=== PATIENT | female | born 1950 | race Hispanic/Latino ===

== ENCOUNTER 2017-03-07 12:13 | Emergency (ER) | payer MEDICARE, OTHER ==
[~2017-03-07 12:13] MED LIST: ACET-66 PO; ASPI-555 PO; ATOR10TA69 PO; B12/1TAB PO; CHOL50004 PO; FERR325T21 PO; LISI10TA7 PO; MIRALAX PO; OMEP40CA37 PO; TRAM50TA4 PO; VERA-7 PO
[2017-03-07 12:45] LABS: BASOPHILS % (AUTO) 0.3 % (0.0-5.0); HEMATOCRIT 37.6 % (36-48); MEAN CORPUSCULAR HEMOGLOBIN 30.3 pg (27.0-33.0); MEAN CORPUSCULAR HGB CONC 33.5 g/dL (32.0-36.0); MEAN CORPUSCULAR VOLUME 90.5 fL (79-99); MONOCYTES % (AUTO) 2.2 % (3.0-13.0); NEUTROPHILS % (AUTO) 89.5 % (40.0-77.0); PLATELET COUNT (AUTO) 258 K/uL (130-400); RED BLOOD CELL COUNT(AUTO) 4.15 MIL/uL (4.00-5.50); WHITE BLOOD COUNT (AUTO) 10.4 K/uL (4.8-10.8)
[2017-03-07 12:58] LABS: POTASSIUM 3.6 mmol/L (3.5-5.1)
[2017-03-07 13:01] LABS: INR 0.94 (0.85-1.15); PARTIAL THROMBOPLASTIN TIME 24.5 SEC (26.3-35.5); PROTHROMBIN TIME 9.9 SEC (9.6-11.6)
[2017-03-07 13:11] LABS: BILIRUBIN,TOTAL 0.9 mg/dL (0.2-1.0); CREATINE KINASE MB 0.6 ng/mL (0.5-3.6); TOTAL PROTEIN, SERUM 7.9 g/dL (6.0-8.3)
[2017-03-07] MEDS ORDERED: ONDANSETRON HCL 4 MG/2 ML VIAL ONE (14:22)
[2017-03-07] MEDS ORDERED: SODIUM CHLORIDE 0.9% 1000ML 1,000 ML IV ONE (14:22)
[2017-03-07] MEDS ORDERED: FAMOTIDINE/PF 20 MG/2 ML VIAL IV ONE (14:22)
[2017-03-07] MEDS ORDERED: LIDOCAINE HCL 2% VISCOUS 15 ML UDCUP ONE (15:10)
[2017-03-07] MEDS ORDERED: MAG HYDROX/AL HYDROX/SIMETH ES 30 ML SUSP UDCUP ONE (15:10)
== END 2017-03-07 19:25 | disposition home or self-care (01) ==
LOC: EDH 12:13
DX: K29.70 Gastritis, unspecified, without bleeding (principal); R11.2 Nausea with vomiting, unspecified; I10 Essential (primary) hypertension; Z88.1 Allergy status to other antibiotic agents; Z88.0 Allergy status to penicillin; Z91.041 Radiographic dye allergy status; Z79.899 Other long term (current) drug therapy
CPT/HCPCS: 36415; 80053; 82550; 82553; 84484; 85025; 85610; 85730; 93005; 96361; 96374; 96375; 99285; J2405; J3490; J7030

== ENCOUNTER 2018-08-19 21:17 | Inpatient (IN) | payer MEDICARE ==
[~2018-08-19] VITALS: Ht 167.6 cm; Wt 93.9 kg
[~2018-08-19 21:17] MED LIST changes: -VERA-7 PO; +VERA240T14 PO
[2018-08-19] MEDS ORDERED: ONDANSETRON HCL 4 MG/2 ML VIAL ONE (21:38)
[2018-08-19 22:03] LABS: BASOPHILS % (AUTO) 0.5 % (0.0-5.0); EOSINOPHILS % (AUTO) 0.5 % (0.0-8.0); HEMATOCRIT 39.7 % (36-48); LYMPHOCYTES % (AUTO) 11.3 % (21.0-51.0); MEAN CORPUSCULAR HGB CONC 33.8 g/dL (32.0-36.0); MEAN CORPUSCULAR VOLUME 91.8 fL (79-99); MONOCYTES % (AUTO) 2.7 % (3.0-13.0); PLATELET COUNT (AUTO) 248 K/uL (130-400); RED BLOOD CELL COUNT(AUTO) 4.33 MIL/uL (4.00-5.50); RED CELL DISTRIBUTION WIDTH 12.9 % (11.0-15.5); WHITE BLOOD COUNT (AUTO) 10.3 K/uL (4.8-10.8)
[2018-08-19 22:14] LABS: POTASSIUM 3.7 mmol/L (3.5-5.1)
[2018-08-19 22:16] LABS: PARTIAL THROMBOPLASTIN TIME 28.4 SEC (26.3-35.5); PROTHROMBIN TIME 10.5 SEC (9.6-11.6)
[2018-08-19 22:18] LABS: ALBUMIN 4.4 g/dL (3.5-5.0); BILIRUBIN,TOTAL 0.8 mg/dL (0.2-1.0); TOTAL PROTEIN, SERUM 8.3 g/dL (6.0-8.3)
[2018-08-19] MEDS ORDERED: KETOROLAC TROMETHAMINE 15MG/ML ONE (22:36)
[2018-08-19] MEDS ORDERED: NITROGLYCERIN 0.4 MG SL TAB SL PRN (23:30)
[2018-08-19] MEDS ORDERED: ONDANSETRON HCL 4 MG/2 ML VIAL IV PRN (23:30)
[2018-08-19] MEDS ORDERED: ACETAMINOPHEN 650 MG SUPPOSITORY RC PRN ×2 (23:30)
[2018-08-19] MEDS ORDERED: SODIUM CHLORIDE 0.9% 1000ML 1,000 ML IV ONE (23:50)
--- NOTE | 2018-08-20 01:55 | NUR ---
ADMISSION. PT ADMITTED INTO ROOM 406, TRANSFERRED VIA STRETCHER. AWAKE, ALERT AND RESPONSIVE, NGT TO RT NAVIDE, CONNECTED TO LIS. NO C/O PAIN OR DISTRESS AT THIS TIME. PT ORIENTED TO ROOM, CALL NEWSOME WITHIN REACH, BED IN LOWEST POSITION. Addendum: 08/20/18 at 0216 by BOBBY LANDRY RN Amended: Links added.
[2018-08-20] MEDS: SODIUM CHLORIDE 0.9% 1000ML 1,000 ML IV SCH ×2 (02:08→20:41)
[2018-08-20 02:26] VITALS: BP 147/93
[2018-08-20 05:50] LABS: BASOPHILS % (AUTO) 0.6 % (0.0-5.0); EOSINOPHILS % (AUTO) 0.3 % (0.0-8.0); HEMATOCRIT 36.9 % (36-48); LYMPHOCYTES % (AUTO) 17.6 % (21.0-51.0); MEAN CORPUSCULAR HEMOGLOBIN 30.4 pg (27.0-33.0); MEAN CORPUSCULAR HGB CONC 32.9 g/dL (32.0-36.0); MEAN CORPUSCULAR VOLUME 92.3 fL (79-99); MONOCYTES % (AUTO) 5.9 % (3.0-13.0); NEUTROPHILS % (AUTO) 75.6 % (40.0-77.0); PLATELET COUNT (AUTO) 254 K/uL (130-400); WHITE BLOOD COUNT (AUTO) 9.5 K/uL (4.8-10.8)
[2018-08-20 06:07] LABS: ALBUMIN 3.4 g/dL (3.5-5.0); BILIRUBIN,TOTAL 0.6 mg/dL (0.2-1.0); CREATININE 0.9 mg/dL (0.5-1.5); POTASSIUM 4.5 mmol/L (3.5-5.1); TOTAL PROTEIN, SERUM 6.8 g/dL (6.0-8.3)
[2018-08-20 08:34] VITALS: BP 136/78
--- NOTE | 2018-08-20 08:41 | NUR ---
DR. SAL AWARE OF CONSULT STATED WILL COME BY AND SEE PATIENT LATER TODAY
[2018-08-20 08:51] LABS: APPEARANCE,URINE Clear (CLEAR); BILIRUBIN,URINE Negative (NEGATIVE); COLOR,URINE Yellow (YELLOW); GLUCOSE, URINE (UA) Negative (NEGATIVE); KETONES,URINE 15 mg/dL (NEGATIVE); LEUKOCYTE ESTERASE ,URINE Trace (NEGATIVE); NITRATE,URINE Negative (NEGATIVE); OCCULT BLOOD,URINE Negative (NEGATIVE); PROTEIN,URINE Negative (NEGATIVE)
[2018-08-20] MEDS: FAMOTIDINE/PF 20 MG/2 ML VIAL IV SCH (09:12)
[2018-08-20 09:37] LABS: BACTERIA,URINE Few /HPF (None Seen)
[2018-08-20 09:38] LABS: RBC,URINE None Seen /HPF (0-1); WBC,URINE 0-1 /HPF (0-1)
--- NOTE | 2018-08-20 11:00 | NUR ---
INITIAL ASSESSEMENT DEFERRED PATIENT WAS SIGNING CONSNET AND TALKING TO SURGICAL TECHWHEN CM WENT PAST ROOM PT KNOWN TO THIS CM FROM LAST ADMIT. THIS CM HAD DISCUSSION WITH PT REGARDING HIS DIABETIC ULCERS & OPTIONS FOR TX. PT UNHAPPY WITH THE INFORMATION CM HAD GIVEN HIM. WAS DISCHARGED TO [facility] FOR [place]. 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 ELI. WILL DEFER DETAILED ASSESSMENT - PT UPSET Addendum: 08/21/18 at 0747 by ADRIANA HIGUERA RN CM Amended: Links added. Addendum: 08/21/18 at 0816 by ADRIANA HIGUERA RN CM IGNORE. WRONG PT
--- NOTE | 2018-08-20 11:01 | NUR ---
CM NOTE ENTERED IN ERROR PLS IGNORE
[2018-08-20 11:35] VITALS: BP 134/85
--- NOTE | 2018-08-20 16:00 | NUR ---
INITIAL MET W PT LIVES ALONE INDP NO DME, FRIENDS TO DRIVE HOME, GROWN KIDS LIVE IN [place], NO DC NEEDS ANTICIPATED Addendum: 08/21/18 at 0868 by ADRIANA HIGUERA RN CM Amended: Links added.
[2018-08-20 16:27] VITALS: BP 109/79
[2018-08-20 20:00] VITALS: BP 106/61
[2018-08-20] MEDS ORDERED: SIME125C81 PO (22:08)
[2018-08-21] VITALS: BP 146/87
[2018-08-21 03:41] VITALS: BP 106/73
[2018-08-21 04:38] LABS: HEMATOCRIT 34.4 % (36-48); MEAN CORPUSCULAR HEMOGLOBIN 31.4 pg (27.0-33.0); MEAN CORPUSCULAR HGB CONC 33.5 g/dL (32.0-36.0); MEAN CORPUSCULAR VOLUME 93.7 fL (79-99); PLATELET COUNT (AUTO) 196 K/uL (130-400); RED BLOOD CELL COUNT(AUTO) 3.67 MIL/uL (4.00-5.50); RED CELL DISTRIBUTION WIDTH 13.1 % (11.0-15.5); WHITE BLOOD COUNT (AUTO) 6.1 K/uL (4.8-10.8)
[2018-08-21 04:52] LABS: CREATININE 0.8 mg/dL (0.5-1.5); POTASSIUM 3.8 mmol/L (3.5-5.1)
[2018-08-21] MEDS ORDERED: ACETAMINOPHEN 325 MG TAB PO PRN ×2 (05:00)
[2018-08-21 08:00] VITALS: BP 145/73
[2018-08-21] MEDS: FAMOTIDINE/PF 20 MG/2 ML VIAL IV SCH (09:10)
[2018-08-21 11:00] VITALS: BP 130/78
[2018-08-21 16:00] VITALS: BP 141/76
--- NOTE | 2018-08-21 18:00 | NUR ---
PT D/C WITH EDUCATION GIVEN TEACH BACK IV REMOVED, CATHETER INTACT PT DENIES SOB OR CHEST PAIN
== END 2018-08-21 18:02 | disposition home or self-care (01) | DRG 390 ==
LOC: EDH 21:17 → EDHIP 23:02 → 4BH 08-20 01:40
PROVIDERS: ADMIT Hospitalist; ATTEND Hospitalist
PROC: 0D9670Z Drainage of Stomach with Drainage Device, Via Natural or Artificial Opening (ICD-10-PCS; principal; 2018-08-19)
DX: K56.609 Unspecified intestinal obstruction, unspecified as to partial versus complete obstruction (principal); E66.9 Obesity, unspecified; E78.5 Hyperlipidemia, unspecified; I12.9 Hypertensive chronic kidney disease with stage 1 through stage 4 chronic kidney disease, or unspecified chronic kidney disease; K21.9 Gastro-esophageal reflux disease without esophagitis; K57.90 Diverticulosis of intestine, part unspecified, without perforation or abscess without bleeding; K58.9 Irritable bowel syndrome, unspecified; N18.3 Chronic kidney disease, stage 3 (moderate); N20.0 Calculus of kidney; F41.9 Anxiety disorder, unspecified; Z68.33 Body mass index [BMI] 33.0-33.9, adult; Z82.0 Family history of epilepsy and other diseases of the nervous system; Z82.3 Family history of stroke; Z82.49 Family history of ischemic heart disease and other diseases of the circulatory system; Z82.5 Family history of asthma and other chronic lower respiratory diseases; Z83.3 Family history of diabetes mellitus; Z90.710 Acquired absence of both cervix and uterus; Z80.9 Family history of malignant neoplasm, unspecified; Z90.49 Acquired absence of other specified parts of digestive tract; Z91.041 Radiographic dye allergy status; Z88.1 Allergy status to other antibiotic agents
CPT/HCPCS: 36415; 71045; 74018; 74176; 80048; 80053; 81001; 82150; 82550; 83690; 84484; 85025; 85027; 85610; 85730; 93005; 99291; G0378; J1885; J2405; J3490; J7030